=== PATIENT | male | born 1985 | race Caucasian/White ===

== ENCOUNTER 2016-12-30 17:05 | Emergency (ER) | payer OTHER ==
[2016-12-30 17:37] VITALS: BP 117/59
--- NOTE | 2016-12-30 18:30 | UC ---
Throat Pain/Nasal Geoffrey HPI - HPI Summary HPI Summary: THREE WEEKS OF SORE THROAT, CONGESTION, LARYNGITIS AND FEELING OF LOSS OF FULL LUNG CAPACITY WHILE SINGING. PATIENT IS A BARRAZA. - History of Current Complaint Hx Obtained From: Patient Onset/Duration: Gradual Onset, Lasting Weeks, Still Present Severity: Mild Pain Intensity: 0 Pain Scale Used: 0-10 Numeric Cough: None Associated Signs & Symptoms: Positive: Dysphagia, Hoarseness, Nasal Discharge. Negative: Fever - Epiglottits Risk Factors Epiglottis Risk Factors: Negative <Juan Guerrero - Last Filed: 12/30/16 18:25> - HPI Summary HPI Summary: I was available for consultation. This patient was seen by mid level provider. The patient was not presented, seen, or examined by me. WR. <Zohaib Wheeler - Last Filed: 01/02/17 11:07> - History of Current Complaint Chief Complaint: UCRespiratory Stated Complaint: SORE THROAT Time Seen by Provider: 12/30/16 17:39 - Allergies/Home Medications Allergies/Adverse Reactions: Allergies Allergy/AdvReac Type Severity Reaction Status Date / Time No Known Allergies Allergy Verified 12/30/16 17:36 Home Medications: Home Medications Multiple Vitamins W/ Minerals [Multivitamin Adults] 1 tab PO DAILY 12/30/16 [ History Confirmed 12/30/16] PMH/Surg Hx/FS Hx/Imm Hx Previously Healthy: Yes - Surgical History Surgical History: None - Family History Known Family History: Negative: Respiratory Disease - Social History Occupation: Employed Full-time Lives: With Family Alcohol Use: Rare Substance Use Type: None Smoking Status (MU): Former Smoker Type: Cigarettes Amount Used/How Often: 1/2-1 ppd Length of Time of Smoking/Using Tobacco: 5 yrs When Did the Patient Quit Smoking/Using Tobacco: 2010 <Juan Guerrero - Last Filed: 12/30/16 18:25> Review of Systems Constitutional: Negative Skin: Negative Eyes: Negative ENT: Sore Throat, Nasal Discharge Respiratory: Other - NOT SHORT OF BREATH, BUT RATHER A FEELING OF INABILITY TO HOLD SINGING NOTES FOR LONG , OR POWERFULLY BEFORE. Cardiovascular: Negative Gastrointestinal: Negative Genitourinary: Negative Motor: Negative Neurovascular: Negative Musculoskeletal: Negative Neurological: Negative Psychological: Negative All Other Systems Reviewed And Are Negative: Yes <Juan Guerrero - Last Filed: 12/30/16 18:25> Physical Exam Triage Information Reviewed: Yes Appearance: Well-Appearing, No Pain Distress, Well-Nourished Vital Signs: Initial Vital Signs Temp 98 F 12/30/16 17:29 Pulse 50 12/30/16 17:29 Resp 14 12/30/16 17:29 BP 117/59 12/30/16 17:29 Pulse Ox 100 12/30/16 17:29 Vital Signs Reviewed: Yes Eye Exam: Normal ENT: Positive: Hearing grossly normal, Pharyngeal erythema, TM bulging, TM dull , TM red - RIGHT > LEFT, Tonsillar swelling Dental Exam: Normal Neck exam: Normal Neck: Positive: Supple, Nontender, No Lymphadenopathy Respiratory Exam: Normal Respiratory: Positive: Chest non-tender, Lungs clear, Normal breath sounds, No respiratory distress, No accessory muscle use Cardiovascular Exam: Normal Cardiovascular: Positive: RRR, No Murmur, Pulses Normal Abdominal Exam: Normal Abdomen Description: Positive: Nontender, No Organomegaly Musculoskeletal Exam: Normal Musculoskeletal: Positive: Strength Intact, ROM Intact Neurological Exam: Normal Psychological Exam: Normal Psychological: Positive: Normal Response To Family Skin Exam: Normal <Juan Guerrero - Last Filed: 12/30/16 18:25> Vital Signs: Initial Vital Signs Temp 98 F 12/30/16 17:29 Pulse 50 12/30/16 17:29 Resp 14 12/30/16 17:29 BP 117/59 12/30/16 17:29 Pulse Ox 100 12/30/16 17:29 <Zohaib Wheeler - Last Filed: 01/02/17 11:07> Throat Pain/Nasal Course/Dx - Differential Dx/Diagnosis Differential Diagnosis/HQI/PQRI: Pharyngitis, Sinusitis, Tonsillitis, URI Provider Diagnoses: SINUSITIS. TONSILLITIS. BRONCHITIS <Juan Guerrero - Last Filed: 12/30/16 18:25> - Course Assessment/Plan: I was available for consultation. This patient was seen by mid level provider. The patient was not presented, seen, or examined by me. WR. <Zohaib Wheeler - Last Filed: 01/02/17 11:07> Discharge <Juan Guerrero - Last Filed: 12/30/16 18:25> <Zohaib Wheeler - Last Filed: 01/02/17 11:07> - Discharge Plan Condition: Stable Disposition: HOME Prescriptions: Albuterol HFA INHALER* [Ventolin HFA Inhaler*] 1 - 2 puff INH Q6H PRN #1 mdi PRN Reason: Wheezing Amoxicillin/Clavulanate TAB* [Augmentin TAB 875*] 875 mg PO BID #20 tab Spacer/Aerosol-Holding Chamber [Aerochamber Mv] 1 mis XX QID #1 mis Patient Education Materials: Sinusitis (ED), Laryngitis (ED), Tonsillitis (ED) Referrals: No Primary Care Phys,NOPCP [Primary Care Provider] -
== END 2016-12-30 18:05 | disposition home or self-care (01) ==
LOC: UCEAST 17:05
DX: J32.9 Chronic sinusitis, unspecified (principal); J03.90 Acute tonsillitis, unspecified; J40 Bronchitis, not specified as acute or chronic; Z87.891 Personal history of nicotine dependence
CPT/HCPCS: 99201; G0463

== ENCOUNTER 2017-04-09 17:07 | Emergency (ER) | payer OTHER ==
[2017-04-09 17:17] VITALS: BP 106/68
--- NOTE | 2017-04-09 17:58 | UC ---
Abdominal Pain Male HPI - HPI Summary HPI Summary: 3-4 WEEKS OF INTERMITTENT SHARP ABDOMINAL PAIN LOCATED PERIUMBILICALLY. NO ASSOCIATION WITH FOOD. NOTICED THAT BELLY BUTTON WILL SOMETIMES LOOK BLUISH IN COLOR. GOES TO THE GYM 5 TIMES PER WEEK AT LEAST. - History of Current Complaint Chief Complaint: UCAbdominalPain Stated Complaint: ABD INJURY Time Seen by Provider: 04/09/17 17:46 Hx Obtained From: Patient Onset/Duration: Gradual Onset, Lasting Weeks, Still Present Timing: Intermittent Episodes Lasting: Severity Initially: Mild Severity Currently: Mild Pain Intensity: 2 Pain Scale Used: 0-10 Numeric Location: Other - PERIUMBILICAL Radiates: No Character: Sharp Aggravating Factor(s):: Nothing Alleviating Factor(s): Spontaneous Resolution Associated Signs And Symptoms: Positive: Negative - Allergies/Home Medications Allergies/Adverse Reactions: Allergies Allergy/AdvReac Type Severity Reaction Status Date / Time No Known Allergies Allergy Verified 04/09/17 17:11 Home Medications: Home Medications Vilazodone (NF) [Viibryd (NF)] 20 mg PO DAILY 04/09/17 [History Confirmed ] PMH/Surg Hx/FS Hx/Imm Hx Previously Healthy: Yes - Surgical History Surgical History: None - Family History Known Family History: Positive: Diabetes Negative: Respiratory Disease - Social History Alcohol Use: Occasionally Substance Use Type: None Smoking Status (MU): Former Smoker Type: Cigarettes Amount Used/How Often: 1/2-1 ppd Length of Time of Smoking/Using Tobacco: 5 yrs When Did the Patient Quit Smoking/Using Tobacco: 2010 Review of Systems Constitutional: Negative Skin: Other - BLUISH BELLY BUTTON Respiratory: Negative Cardiovascular: Negative Gastrointestinal: Abdominal Pain Genitourinary: Negative All Other Systems Reviewed And Are Negative: Yes Physical Exam Triage Information Reviewed: Yes Appearance: Well-Appearing, No Pain Distress, Well-Nourished Vital Signs: Initial Vital Signs Temp 97.8 F 04/09/17 17:13 Pulse 53 04/09/17 17:13 Resp 16 04/09/17 17:13 BP 106/68 04/09/17 17:13 Pulse Ox 100 04/09/17 17:13 Vital Signs Reviewed: Yes Eyes: Positive: Conjunctiva Clear ENT: Positive: Hearing grossly normal Neck: Positive: Supple Respiratory: Positive: No respiratory distress, No accessory muscle use Cardiovascular: Positive: Pulses Normal Abdomen Description: Positive: Nontender, Soft, Other: - PALPABLE DEFECT IN ABDOMINAL WALL AT UMBILICUS. NO CLEAR HERNIATION WITH INCREASED INTRA-ABDOMINAL PRESSURE. NO DISCOLORATION OF SKIN. Negative: CVA Tenderness (R), CVA Tenderness (L), Distended, Guarding Abd Pain Male Course/Dx - Course Course Of Treatment: REFER TO GENERAL SURGERY FOR FURTHER EVAL. TO ER IF SYMPTOMS WORSEN. - Differential Dx/Clinical Impression Provider Diagnoses: SUSPECTED UMBILICAL HERNIA Discharge - Discharge Plan Condition: Stable Disposition: HOME Patient Education Materials: Umbilical Hernia (ED) Referrals: Dale Wiggins MD [Medical Doctor] - As Soon As Possible Additional Instructions: AVOID ANYTHING THAT INCREASES YOUR INTRA-ABDOMINAL PRESSURE. CALL SURGERY FOR AN APPT FOR FURTHER EVALUATION. GO TO THE ER WITHOUT FAIL IF YOU DEVELOP PAIN THAT DOESN'T RESOLVE, FEVER, A BULGE THROUGH YOUR BELLY BUTTON THAT DOES NOT REDUCE OR ANY OTHER CONCERNING SYMPTOMS.
== END 2017-04-09 18:30 | disposition home or self-care (01) ==
LOC: UCEAST 17:07
DX: R10.9 Unspecified abdominal pain (principal); Z87.891 Personal history of nicotine dependence
CPT/HCPCS: 99211; G0463

== ENCOUNTER 2017-04-23 09:08 | Day surgery (SDC) | payer OTHER ==
[~2017-04-23 09:08] MED LIST: Buffered Lidocaine 0.9% SYRIN* 5 ML/SYR SYRINGE INTRADERM ONE; Ibuprofen TAB* 400 MG PO ONE; Sodium Citrate/Citric Acid* 15 ML UDC PO ONE
[2017-04-23] MEDS ORDERED: ceFAZolin 2 GM PREMIX(*) 2 GM/50 ML BAG IVPB ONE (09:18)
[2017-04-23] MEDS ORDERED: Sodium Citrate/Citric Acid* 15 ML UDC ONE (09:18)
[2017-04-23] MEDS ORDERED: Ibuprofen TAB* 400 MG ONE (09:18)
[2017-04-23] MEDS ORDERED: Buffered Lidocaine 0.9% SYRIN* 5 ML/SYR SYRINGE ONE (09:18)
[2017-04-23] MEDS ORDERED: Bupivacaine 0.5% W/EPI SDV* 10 ML VIAL INJ ONE ×2 (12:31→12:32)
[2017-04-23] MEDS ORDERED: Lidocaine 1% INJ* 10 MG/ML 30 ML SDV ONE (12:32)
[2017-04-23] MEDS ORDERED: Midazolam* 1 MG/ML 5 ML VIAL (5 MG) ONE (12:41)
[2017-04-23] MEDS ORDERED: fentaNYL* 50 MCG/ML 2 ML VIAL (100 MCG VIAL) ONE (12:41)
[2017-04-23] MEDS ORDERED: Midazolam* 1 MG/ML 2 ML VIAL (2 MG) ONE (13:05)
[2017-04-23] MEDS ORDERED: oxyCODONE/Acetamin 5/325 MG* TAB PO PRN (13:39)
[2017-04-23 13:56] VITALS: BP 137/55
--- NOTE | 2017-04-29 04:56 | OP ---
CC: [facility]; Dr. Jud Olmos OPERATIVE REPORT: DATE OF OPERATION: 04/23/17 DATE OF : 87 SURGEON: Dale Wiggins MD TECHNOLOGY CONSULTANT: KD Smith ANESTHESIOLOGIST: Dr. Monaco. ANESTHESIA: Local MAC anesthesia. PRE-OP DIAGNOSIS: Umbilical hernia. POST-OP DIAGNOSIS: Umbilical hernia. OPERATIVE PROCEDURE: Open umbilical hernia repair. ESTIMATED BLOOD LOSS: Minimal. SPECIMENS: None. FLUIDS: 500 cc of LR given. DRAINS: None. DESCRIPTION OF PROCEDURE: The patient was identified in the preoperative area, clipped of hair on t he abdomen and marked and brought to the operating room and placed on the operating room table in a supine position. Preoperative antibiotics were given, sequential devices were placed on bilateral l ower extremities. Gentle sedation was given and the patient's abdomen was prepped and draped in a s tandard surgical fashion. A time-out was performed. An infraumbilical wound incision was made after injection of lidocaine with epinephrine. This was d eepened down to the anterior fascia inferior to the hernia. The umbilical skin was then sharply diss ected off of the hernia sac and the hernia sac opened up into the abdomen. The edges of this hernia were cleared off, it was approximately three-quarters of a centimeter in si ze and closed with interrupted 0 Ti-Cron sutures. The wound was then irrigated, hemostasis was achi eved, the umbilical skin was tacked down with 2- 0 Polysorb sutures and the umbilical incision was r eapproximated with 3-0 Polysorb sutures followed by a 4-0 Monocryl subcuticular suture. Steri-Strip s and sterile dressing were applied. The patient tolerated the procedure well and was transferred t o the PACU in stable condition. [id number]/[facility] #: [id number]
== END 2017-04-23 14:01 | disposition home or self-care (01) ==
LOC: OR 09:08
PROVIDERS: ATTEND Surgery
DX: K42.9 Umbilical hernia without obstruction or gangrene (principal); F32.9 Major depressive disorder, single episode, unspecified; Z87.891 Personal history of nicotine dependence
CPT/HCPCS: A9270-GY; J0690; J2001; J2250; J3010